=== PATIENT | female | born 1955 | race Caucasian/White ===

== ENCOUNTER 2018-04-04 11:52 | Inpatient (IN) | payer MEDICARE, BC, OTHER ==
[~2018-04-04] VITALS: Ht 165.1 cm; Wt 54.0 kg
--- NOTE | ~2018-04-04 | PLAN ---
[address] [address] REHAB UNIT PLAN OF CARE Name: ERICKA MORA Room: [facility] ADM IN M.R.#: [id number] Admission: 04/04/18 Attend Phys: Susan Camarena DO Discharge: Date of : 57 Report #: [id number] THIS REPORT FOR: //name// CC: FAM unknown Susan Camarena The patient was admitted to inpatient rehabilitation yesterday from [facility] secondary to end-stage renal disease. Previous level of function was modified independent to independent. Current level of function is min to moderate assist. Estimated length of stay is 16-18 days. REHABILITATION PROGNOSIS: Good. MEDICAL PROGNOSIS: Good. PT will see the patient 60-90 minutes a day for 5 days a week for ambulation, balance and coordination. OT will see the patient 60-90 minutes a day for 5 days a week for upper extremity strength, balance, coordination, bathing, dressing and toileting. Speech and language pathology will see the patient 30-90 minutes per day for 5 days a week. This is an overall plan of care and may change and we will be updated as needed. By: [id number] Camarena DO /bibiana
--- NOTE | ~2018-04-04 | D ---
[facility] [address] [place] [address] DISCHARGE SUMMARY Name: ERICKA MORA Room: [facility] ADM IN M.R.#: [id number] Admission: 04/04/18 Attend Phys: Susan Camarena DO Discharge: Date of : 57 Report #: [id number] THIS REPORT FOR: //name// CC: FAM unknown Susan Camarena DISCHARGE DIAGNOSIS: Debility with alterations in activities of daily living. DISCHARGE DISPOSITION: To home with home health, PT, OT and nursing. She will follow with her primary care physician within 2-4 weeks. Notifications for physician were given. She is on a renal regular diet with Ensure Clear with high routine. Labs were within normal limits. She was also maintained on hospital scheduled dialysis on Tuesdays, and Saturdays. She was able to make our minutes as well as her goals. She did quite well during her stay. She will follow up with her renal doctor per her renal dialysis schedule. Fall precautions maintained. Medications were reviewed, reconciled by myself and are available in the MAR. Prescriptions were given for oxycodone 5/325, one q. 6 hours as needed for pain, #60 with no refills. Otherwise no medications or prescriptions were started during the stay. DISCHARGE PHYSICAL EXAMINATION: GENERAL: Alert, oriented, no apparent distress. VITAL SIGNS: Reviewed and are stable. HEENT: Head atraumatic, normocephalic. Pupils equal, round, reactive. ABDOMEN: Soft, nontender, nondistended. NEUROLOGIC: Cranial nerves 2-12 are grossly intact with no focal neuro deficits. By: [id number] Camarena DO /nt
[2018-04-04] MEDS ORDERED: SSD CREAM 1% 5050 GM TOP (12:45)
[2018-04-04] MEDS ORDERED: MICONAZOLE NITR45 G3 TOP (12:47)
[2018-04-04] MEDS ORDERED: PERCOCET PO (12:48)
[2018-04-04] MEDS ORDERED: TRIAD TOP (12:50)
[2018-04-04] MEDS ORDERED: B COMPLEX WITH1 EACH PO (12:54)
[2018-04-04] MEDS ORDERED: TYLENOL EXTRA500 MG PO (12:55)
[2018-04-04] MEDS ORDERED: ONDANSETRON HCL4 M2 PO (12:56)
[2018-04-04] MEDS ORDERED: PROTONIX40 M1 PO (12:57)
[2018-04-04] MEDS ORDERED: PROBIOTIC1 EAC1 PO (12:58)
[2018-04-04] MEDS ORDERED: SYNTHROID50 MCG PO (12:58)
[2018-04-04] MEDS ORDERED: REGLAN 10 MG TA10 MG PO (12:59)
[2018-04-04] MEDS ORDERED: MIDODRINE HCL 55 M1 PO (13:00)
[2018-04-04] MEDS ORDERED: CALCITRIOL0.25 MCG PO (13:01)
[2018-04-04] MEDS ORDERED: CELEXA20 MG PO (13:02)
[2018-04-04] MEDS ORDERED: B-121000 MC2 PO (13:03)
[2018-04-04] MEDS ORDERED: ARANESP 6060 MCG/0.3 INJECTION (13:04)
[2018-04-04] MEDS ORDERED: COLESTID1 GM PO (13:08)
--- NOTE | 2018-04-04 17:46 | NUR ---
PT ARRIVED TO ROOM 324 PER W/C WITH SECURITY PUSHING PT AND W/C DATA CENTER PROJECT MANAGER FOLLOWING WITH PT'S W/C. PT ARRIVED WITH CUT ON LT HAND AND REPORTED SHE HAD FALLEN OUT OF W/C BEFORE ENTERING THE BUILDING. PT IS ALERT AND ORIENTATED AND PLESANT WITH ADMISSION DONE. LT HAND CLEANSED WITH WOUND CLEANSER AND BANDAGE APPLIED TO MIDDLE FINGER. PT DENIES PAIN. PT HAS AV SHUNT TO LT UPPER ARM WITH GOOD BRUT FELT. PT HAS REDDENED BUTTOX, CLEANSES AND BARRIER CREAM APPLIED. PT STATES SHE DOES NOT VOID AND HAS POOR CONTROL OF HER BOWELS.PT IS ORIENTATED TO ROOM AND CONTROLS,WITH FALL PREVENTION DISCUSSED.
[2018-04-04 20:00] VITALS: BP 106/60
[2018-04-05 04:51] LABS: HEMATOCRIT 22.9 % (37.0-47.0); HEMOGLOBIN 7.4 gm/dL (12.0-15.0); MCH 30.7 pg (26.0-34.0); MCHC 32.5 g/dL (28.0-37.0); MCV 94.5 fL (80.0-100.0); MPV 7.4 fl. (7.2-11.1); RBC 2.42 mil/uL (4.20-5.00); RDW-CV 16.7 % (10.5-14.5); WBC 8.7 thou/uL (4.0-11.0)
[2018-04-05 05:15] LABS: CALCIUM 7.9 mg/dL (8.5-10.1); CREATININE 2.3 mg/dL (0.6-1.3); POTASSIUM 3.9 mmol/L (3.5-5.1)
--- NOTE | 2018-04-05 05:52 | NUR ---
ASSUMED CARES AT 1920. DR MISTRY INFORMED OF PT'S FALL FROM EARLIER IN DAY. PT ALERT AND ORIENTED. PLEASANT. ALREADY IN BED. DENIED ANY PAIN. TOOK PILLS WHOLE WITHOUT ISSUES. AV SHUNT TO LUE WITH PALPABLE THRILL AND GOOD BRUIT. BARRIER CREAM APPLIED TO REDNESS TO COCCYX/BUTTOCKS. BANDAID INTACT TO LEFT FINGER SKIN TEAR. SOME STOOL INCONTINENCE. INITIALLY DURING THE NIGHT WERE SOFT STOOLS BUT THEN WAS SOFT/LIQUIDY GREEN WITH MUCOUS. HELLS OFFLOADED ONTO PILLOWS. TURNED ONTO SIDES THROUGHOUT THE NIGHT. SLEPT SOME OFF AND ON. CALL LIGHT IN REACH AND BED ALARM ON.
[2018-04-05 07:53] VITALS: BP 119/65
--- NOTE | 2018-04-05 13:57 | NUR ---
Nutrition: Pt has h/o lap band/removal, gastric bypass. She is currently on Renal diet. She is very knowledgable about her dietary need. She is admitted with debility 2/2 ESRD. Ca 7.9, cr 2.3, Hgb 7.4. Pt refused Jaiden, Nepro supplements. She does like yogurt - RD will order. Has a tough time eating meats, dislikes noodles. RD provided pt with menu and ordering explanation. Mild risk. Will follow weekly.
--- NOTE | 2018-04-05 18:19 | NUR ---
PT HAS PARTICIPATED WITH THERAPY TODAY AND HAD DIALYSIS THIS AFTERNOON AND TOLERATED WELL. PT IS ALERT AND ORIENTATED AND CALLS FOR ASSIST WITH TRANSFERRS. PT DOES WELL AFTER ASSISTED TO STANDING WITH GAITBELT. PT TRANSFERRS TO TOILET AND HAS HAD LARGE FORMED BM TODAY WITH ASSIST OF 2 FOR SAFETY. PT SELDOM VOIDS. BARRIER CREAM APPLIED TO COCCYX AND FUNGAL CREAM TO GROINS WITH GOOD EFFECT. PT HAS BEEN TO DINNINGROOM FOR LUNCH. DIALYSIS CATHETER INTACT WITH NO BLEEDING NOTED. PT VISITS WITH FAMILY.
[2018-04-05 19:58] VITALS: BP 98/50
[2018-04-05 23:07] LABS: HEPATITIS B SURFACE AG Negative (Negative)
--- NOTE | 2018-04-06 05:00 | NUR ---
ASSUMED CARES AT 1920. ALERT AND ORIENTED. PLEASANT. TAKING PILLS BETTER WHEN GIVEN WITH JUICE. DENIED ANY PAIN. HAD LIQUID STOOL INCONTINENCE. RN DID ALL CARES. BARRIER CREAM APPLIED TO REDNESS TO BUTTOCKS. PT TURNED THROUGHOUT THE NIGHT. SLEPT SOME OFF AND ON. CALL LIGHT IN REACH AND BED ALARM ON.
[2018-04-06 07:49] VITALS: BP 133/68
--- NOTE | 2018-04-06 11:31 | CON ---
[address] [address] CONSULTATION Name: ABBYERICKA Room: [address] IN M.R.#: [id number] Admission: 04/04/18 Attend Phys: Susan Camarena DO Discharge: Date of : 57 Report #: [id number] THIS REPORT FOR: //name// CC: FAM unknown Susan Camarena DATE OF SERVICE: 04/05/2018 REQUESTING PHYSICIAN: Dr. Camarena. REASON FOR CONSULTATION: Assist in providing dialysis. HISTORY OF PRESENT ILLNESS: The patient is a very pleasant 62-year-old female with medical history significant for end-stage renal disease, deconditioning, history of some chronic wounds. She also has ____ history of GERD and presents here in rehab for rehabilitation. His normal dialysis days here will be Wednesday, and Wednesday because of rehabilitation. FAMILY HISTORY: Noncontributory. SOCIAL HISTORY: No current tobacco or alcohol abuse. She never smoked. MEDICATIONS: Reviewed. REVIEW OF SYSTEMS: No chest pain, no shortness of breath. No nausea, no vomiting. She complains she is being weak and she has led to work here from ____ her rehab. PHYSICAL EXAMINATION: GENERAL: Awake, alert, oriented. VITAL SIGNS: Reviewed. HEENT: Pupils are round and reactive to light. NECK: Supple. LUNGS: Clear. CARDIOVASCULAR: Regular rate. ABDOMEN: Soft. LOWER EXTREMITIES: No edema. ASSESSMENT: A 62-year-old female with end-stage renal disease and deconditioning, admitted for rehabilitation. PLAN: Dialyze her on Wednesday, , Wednesday schedule while she is here. <ELECTRONICALLY SIGNED> By: Chuck Carey MD 04/06/18 1131 [id number] Carey MD /[facility]
--- NOTE | 2018-04-06 16:00 | NUR ---
SW completed initial assessment, introduced self, and SW role. Pt alert, oriented, pleasant. Pt lives at home with and nephew Ayden. [phone]. pt has RW, wc, stool riser and Bath bench. Pt has been on dialysis for 4 years at [facility] in [place]. SW and marion Trujillo met with pt to review team conference summary and plan for team to reteam during team conference next Wednesday. Pt in agreement with plan. SW to follow to discuss with pt nephew at pt request. SW to continue to follow to assist with safe dc planning.
--- NOTE | 2018-04-06 19:21 | NUR ---
AM ASSESSMENT AND VITAL SIGNS COMPLETED DOCUMENTED. PT HAS BEEN PLEASANT AND COOPERATIVE, WORKED WITH PT, OT AND ST. PRN PERCOCET GIVEN FOR C/O BACK PAIN THIS EVENING. FALL PRECAUTIONS AND HOURLY ROUNDING CONTINUE.
[2018-04-06 20:11] VITALS: BP 95/51
--- NOTE | 2018-04-07 05:23 | NUR ---
ASSUMED CARES AT 1920. ALREADY IN BED. ALERT AND ORIENTED. PLEASANT AND COOPERATIVE. TOOK PILLS WHOLE WITH JUICE. DENIED ANY NEED FOR FURTHER PAIN MEDS. HAD STOOL INCONTINENCE. NURSING DID ALL CARES. BARRIER CREAM APPLIED TO COCCYX. PT TURNED DURING THE NIGHT. SLEPT SOME. NO ISSUES OVERNIGHT. CALL LIGHT IN REACH AND BED ALARM ON.
[2018-04-07 08:00] VITALS: BP 104/61
[2018-04-07 09:33] VITALS: BP 104/61
--- NOTE | 2018-04-07 18:51 | NUR ---
AM ASSESSMENT AND VITAL SIGNS COMPLETED DOCUMENTED. PT COMPLETED ALL THERAPY SESSIONS SCHEDULED. PT HAS BEEN IN DIALYSIS SINCE 1500. FALL PRECAUTIONS AND HOURLY ROUNDING CONTINUE.
[2018-04-07 20:04] VITALS: BP 103/59
--- NOTE | 2018-04-08 05:10 | NUR ---
ASSUMED PT CARE AT 1930. PT RETURNED FROM DIALYSIS AT SHIFT CHANGE. VS WNL. PT ALERT AND ORIENTED X4, POLITE AND COOPERATIVE WITH CARES. TAKES PILLS WHOLE WITH JUICE. NO PAIN MEDS GIVEN. BARRIER CREAM TO COCCYX. PT TURNED Q2 OVERNIGHT. PT HAS VARIOUS BRUISES ON EXTREMITIES. DIALYSIS SHUNT TO LEFT ARM WITH BRUIT AND THRILL. DRESSING C/D/I. NO S/S PAIN OR DISTRESS. USES CALL LIGHT APPROPRIATELY. CALL LIGHT AND FREQUENTLY USED ITEMS WITHIN REACH. HOURLY ROUNDING IN PROGRESS, WILL CONTINUE TO MONITOR.
[2018-04-08 08:06] VITALS: BP 133/71
--- NOTE | 2018-04-08 18:02 | NUR ---
ASSUMMED CARE OF PT AT 0730, PT ALERT AND ORIENTED, TRANSFERS WITH MOD ASSIST OF 1, GB, PROPELS WHEELCHAIR TO DININGROOM, PT TAKING FOOD AND FLUIDS WELL, BM X 2 THIS SHIFT, SMALL INCONTINENT IN BED AND MODERATE ON TOILET, PT DIALYSIS ACCESS INTACT, GD BRUIT/THRILL, NO VOID THIS SHIFT, DENIES PAIN, PARTICIPATED IN ALL THERAPIES, HOURLY ROUNDING COMPLETED, ASSESSMENT COMPLETE, WILL CONTINUE TO MONITOR.
[2018-04-08 20:04] VITALS: BP 97/58
[2018-04-09 05:08] LABS: ABSOLUTE EOSINOPHILS 0.2 thou/uL (0.0-0.7); ABSOLUTE LYMPHOCYTES 2.4 thou/uL (0.8-5.3); ABSOLUTE MONOCYTES 0.4 thou/uL (0.0-1.2); ABSOLUTE NEUTROPHILS 2.8 thou/uL (1.6-8.1); BASOPHILS 0.5 %; EOSINOPHILS 2.7 %; HEMATOCRIT 23.5 % (37.0-47.0); HEMOGLOBIN 7.9 gm/dL (12.0-15.0); LYMPHOCYTES 42.2 %; MCHC 33.9 g/dL (28.0-37.0); MCV 94.6 fL (80.0-100.0); MONOCYTES 6.8 %; MPV 7.2 fl. (7.2-11.1); NUCLEATED RBCS 0 /100WBC; PLATELET COUNT* 154 thou/uL (150-400); POLYS 47.8 %; RBC 2.48 mil/uL (4.20-5.00); RDW-CV 16.5 % (10.5-14.5); WBC 5.8 thou/uL (4.0-11.0)
--- NOTE | 2018-04-09 05:22 | NUR ---
ASSUMED PT CARE AT 1930. PT ALERT AND ORIENTED X4, POLITE AND COOPERATIVE WITH CARES. TAKES PILLS WHOLE WITH WATER WITHOUT DIFFICULTY. DIALYSIS SHUNT TO LEFT ARM INTACT WITH GOOD BRUIT AND THRILL. NO VOID THIS SHIFT. PT DENIES PAIN. NO STOOL THIS SHIFT. HOURLY ROUNDING IN PROGRESS, WILL CONTINUE TO MONITOR.
[2018-04-09 05:35] LABS: ALBUMIN 1.4 g/dL (3.4-5.0); ALKALINE PHOSPHATASE 70 U/L (46-116); ANION GAP 2 mmol/L (7-16); BUN 9 mg/dL (7-18); CALCIUM 7.7 mg/dL (8.5-10.1); CHLORIDE 102 mmol/L (98-107); CO2 33 mmol/L (21-32); CREATININE 2.7 mg/dL (0.6-1.3); DIRECT BILIRUBIN 0.1 mg/dL (<0.1-0.3); GLUCOSE 65 mg/dL (70-99); PHOSPHORUS* 2.8 mg/dL (2.5-4.9); POTASSIUM 4.1 mmol/L (3.5-5.1); SGOT 11 U/L (15-37); SODIUM 137 mmol/L (136-145); TOTAL BILIRUBIN 0.4 mg/dL (<0.1-1.0); TOTAL PROTEIN 4.8 g/dL (6.4-8.2)
[2018-04-09 20:00] VITALS: BP 104/58
--- NOTE | 2018-04-10 05:16 | NUR ---
ASSUMED PT CARE AT 1930. PT ALERT AND ORIENTED X4, POLITE AND COOPERATIVE WITH CARES. PT ALREADY IN BED AT SHIFT CHANGE HAVING RETURNED FROM DIALYSIS. TAKES PILLS WHOLE WITH JUICE WITHOUT DIFFICULTY. DIALYSIS SHUNT TO LEFT ARM INTACT WITH GOOD BRUIT AND THRILL. INCONTINENT OF STOOL SEVERAL TIMES THIS SHIFT. STAFF PERFORMED ALL PERICARES, BARRIER CREAM APPLIED. REDNESS TO BUTTOCKS IMPROVED. NO URINE OUTPUT. TURNED Q2 OVERNIGHT. CALL LIGHT AND FREQUENTLY USED ITEMS WITHIN REACH. HOURLY ROUNDING IN PROGRESS, WILL CONTINUE TO MONITOR.
[2018-04-10 07:50] VITALS: BP 119/56
[2018-04-10 13:50] LABS: SGPT < 6 U/L (30-65)
--- NOTE | 2018-04-10 18:14 | NUR ---
AM ASSESSMENT AND VITAL SIGNS COMPLETED DOCUMENTED. PT HAS BEEN ANURIC TODAY, INCONTINENT OF BOWEL X1. PT REQUIRES MODERATE ASSIST WITH TRANSFERS AND TOILETING BUT IS ABLE TO DO HER ADL'S FROM A CHAIR AND FEEDS HERSELF WITHOUT DIFFICULTY. FALL PRECAUTIONS AND HOURLY ROUNDING CONTINUE.
[2018-04-10 20:00] VITALS: BP 91/55
--- NOTE | 2018-04-11 04:57 | NUR ---
ASSUMED CARE AT 1920. ALERT AND ORIENTED. PLEASANT. ALREADY IN BED. TAKES PILLS WHOLE. DENIED ANY NEED FOR PAIN MEDS. REDNESS TO COCCYX IMPROVING. BARRIER CREAM APPLIED. DRESSING TO LEFT FOREARM CHANGED. PICTURES TAKEN. DID HAVE URINARY INCONTINENCE X 1. NURSING ASSISTED WITH CARES. TURNED EVERY 2 HOURS. HAD MUCH DIFFICULTY TRYING TO SLEEP. SLEPT VERY LITTLE. CALL LIGHT IN REACH AND BED ALARM ON.
[2018-04-11 07:43] VITALS: BP 126/62
--- NOTE | 2018-04-11 15:55 | NUR ---
ASSUMMED CARE OF PT AT 0730, PT ALERT AND ORIENTED, TRANSFERS WITH ASSIST OF 1, GB, NEEDS LIFTING ASSIST. DIALYSIS SHUNT IN LEFT ARM, DENIES PAIN, NO URINATION THIS SHIFT, NEW SKIN TEAR BELOW LEFT ELBOW, CLEANSED AND MEPILEX APPLIED, NEEDS ENCOURAGEMENT TO EAT, TOLERATED TAKING PILLS WITH NO CHOKING/EMESIS TODAY. PARTICIPATED IN ALL THERAPIES, HOURLY ROUNDING COMPLETED, ASSESSMENT COMPLETE WILL CONTINUE TO MONITOR.
[2018-04-11 20:00] VITALS: BP 112/71
--- NOTE | 2018-04-12 05:12 | NUR ---
ASSUMED PT CARE AT 1930. PT ALERT AND ORIENTED X4, POLITE AND COOPERATIVE WITH CARES. PT ALREADY IN BED AT SHIFT CHANGE. DENIES PAIN. TAKES PILLS WHOLE WITH JUICE WITHOUT DIFFICULTY. DIALYSIS SHUNT TO LEFT ARM INTACT WITH GOOD BRUIT AND THRILL. INCONTINENT OF STOOL, STAFF PERFORMED PERICARES. BARRIER CREAM APPLIED. REDNESS TO BUTTOCKS IMPROVED. NO URINE OUTPUT THIS SHIFT. TURNED Q2 OVERNIGHT. CALL LIGHT AND FREQUENTLY USED ITEMS WITHIN REACH. HOURLY ROUNDING IN PROGRESS, WILL CONTINUE TO MONITOR.
[2018-04-12 08:27] VITALS: BP 96/63
--- NOTE | 2018-04-12 14:16 | NUR ---
SW called and left a message with pt nephew in preparation for team conference tomorrow and requested call back with any questions or comments. SW to continue to follow to assist with safe dc planning.
--- NOTE | 2018-04-12 18:34 | NUR ---
ASSUMMED CARE OF PT AT 0730, PT ALERT AND ORIENTED, TRANSFERS WITH MOD ASSIST OF 1 AND GB, NEEDS LIFTING ASSIST, NO URINE OUTPUT THIS SHIFT, PT LEFT FOR HEMODIALYSIS AT 1500, BM X 1 THIS SHIFT, RECIEVED SKIN TEAR TO FINGER AND ARM THIS SHIFT, MEPILEX AND BANDAIDE APPLIED, DENIES PAIN, PARTICIPATED IN ALL THERAPIES, PROPELS WHEELCHAIR INDEPENDENTLY, TO DININGROOM FOR LUNCH, HOURLY ROUNDING COMPLETED, ASSESSMENT COMPLETE WILL CONTINUE TO MONITOR.
[2018-04-12 20:00] VITALS: BP 116/69
--- NOTE | 2018-04-13 05:25 | NUR ---
ASSUMED PT CARE AT 1930. PT ALERT AND ORIENTED X4, POLITE AND COOPERATIVE WITH CARES. PT RECENTLY RETURNED FROM DIALYSIS, RESTING IN BED AT SHIFT CHANGE. DENIES PAIN. TAKES PILLS WHOLE WITH JUICE WITHOUT DIFFICULTY. DIALYSIS SHUNT TO LEFT ARM INTACT WITH GOOD BRUIT AND THRILL. MEPILEX X3 TO VARIOUS SKIN TEARS AND BANDAID TO LEFT HAND. INCONTINENT OF STOOL, STAFF PERFORMED PERICARES. BARRIER CREAM APPLIED. REDNESS TO BUTTOCKS IMPROVED. NO URINE OUTPUT THIS SHIFT. TURNED Q2 OVERNIGHT. CALL LIGHT AND FREQUENTLY USED ITEMS WITHIN REACH. HOURLY ROUNDING IN PROGRESS, WILL CONTINUE TO MONITOR.
[2018-04-13 08:17] VITALS: BP 112/69
--- NOTE | 2018-04-13 16:24 | NUR ---
RAMÍREZ and Dr Camarena met with pt to review team conference summary and plan for pt to remain on rehab unit one more week with team to meet next Wednesday to reassess pt length of stay during team conference. Pt okay with plan and expressed that she hopes to be able to dc before Saroj. SW to continue to follow to assist with safe dc planning.
--- NOTE | 2018-04-13 17:45 | NUR ---
ASSUMED CARE AT 0730 PATIENT ALERT/ORIENTED, NO COMPLAINTS OF PAIN THIS SHIFT UP WITH ASSIST OF ONE WITH GAITBELT/STAND PIVOT TO W/C, PATIENT PROPELS SELF AROUND UNIT IN W/C. PARTICIPATED IN ALL THERAPIES TODAY, TO DINING ROOM FOR MEALS, BED/CHAIR ALARMS IN PLACE, CALL LIGHT IN REACH, HOURLY ROUNDING COMPLETED.
[2018-04-13 20:00] VITALS: BP 109/62
--- NOTE | 2018-04-14 01:30 | NUR ---
ASSUMED CARE @ 1939-.SITS IN W/C IN ROOM & PROPELS W/C IND.LEFT UPPER ARM SHUNT/FISTULA HAS GOOD BRUIT & GOOD THRILL @ 1939.PASSING GAS.BED ALARM PUT ON @ 2029.REFUSED HS MEDS X2 & TOPICAL MED X1.PULL UPS OFF @ HS. ANTI FUNGAL CREAM APPLIED TO PINK COCCYX @ 0000-04/14-.ON HOURLY ROUNDS. HVAC INSTALLER DOING ODD HOUR ROUNDS.SEE POSITION CHANGE CHARTING Q 2 HOURS-EVEN HOURS.
[2018-04-14 04:11] LABS: HEMATOCRIT 23.3 % (37.0-47.0); HEMOGLOBIN 7.7 gm/dL (12.0-15.0); MCH 30.7 pg (26.0-34.0); MCHC 32.9 g/dL (28.0-37.0); MCV 93.3 fL (80.0-100.0); MPV 7.5 fl. (7.2-11.1); RBC 2.49 mil/uL (4.20-5.00); RDW-CV 16.1 % (10.5-14.5); WBC 5.5 thou/uL (4.0-11.0)
[2018-04-14 04:43] LABS: CALCIUM 7.8 mg/dL (8.5-10.1); MAGNESIUM 1.9 mg/dL (1.8-2.4); POTASSIUM 3.9 mmol/L (3.5-5.1)
--- NOTE | 2018-04-14 05:08 | NUR ---
SLEEPING SINCE 2199 & SLEPT GOOD ALL NIGHT.AWAKENED ONLY TO TURN & GOES BACK TO SLEEP.BRP PER W/C X1 BEFORE HS BUT ONLY PASSED GAS.NO BM.TOOK ALL APPLE JUICE HS SNACK.FOR DIALYSIS TODAY-SATURDAY 04/14.
[2018-04-14 07:00] VITALS: BP 111/71
[2018-04-14 08:00] VITALS: BP 111/71
--- NOTE | 2018-04-14 17:43 | NUR ---
ASSUMED CARE AT 0730 PATIENT ALERT/ORIENTED, NO COMPLAINTS OF PAIN THIS SHIFT, UP WITH MOD ASSIST TO STANDING POSITION, PROPELS SELF IN W/C ON UNIT. PARTICIPATED IN ALL THERAPIES TODAY, TO DINING ROOM FOR MEALS, HOURLY ROUNDING COMPLETED, BED/CHAIR ALARMS IN PLACE, CALL LIGHT IN REACH. DIALYSIS THIS AFTERNOON.
[2018-04-14 20:00] VITALS: BP 98/60
--- NOTE | 2018-04-15 02:49 | NUR ---
ASSUMED CARE @ 1949-04/14-.AWAKE IN BED WATCHING BALL GAME W/ HOB UP. BED ALARM ON ALREADY @ 1949.SHUNT/FISTULA LEFT UPPER W/ GOOD BRUIT & GOOD THRILL.HEELS OFF BED @ 1949.REFUSED ORAL MEDS X2 & TOPICAL OINT. @ HS.PULL UPS OFF @ 2154.SEE POSITION CHANGE CHARTING BY PICKING TABLE WORKER Q 2 HOURS-EVEN HOURS.ON HOURLY ROUNDS.PICKING TABLE WORKER DOING ODD HOUR ROUNDS.AWAKENED ONLY TO TURN.
--- NOTE | 2018-04-15 05:21 | NUR ---
SLEEPING SINCE 2100 & SLEPT GOOD ALL NIGHT.[employer].INC BM @ 0200.MOISTURE BARRIER CREAM APPLIED AFTER ALVARO CARE @ 0200 & PRN.TOOK ALL APPLE JUICE HS SNACK.
[2018-04-15 07:00] VITALS: BP 120/71
--- NOTE | 2018-04-15 13:54 | NUR ---
ASSUMED CARE AT 0730. ALERT ORIENTED PLEASANT COOPERATIVE. HX OF WEAKNESS RENAL FAILURE. SITTING IN BED EATING BREAKFAST. APPETITE GOOD FEEDS SELF. TAKES MEDS WITHOUT DIFFICULTY. PARTICIPATING IN THERAPIES. DENIES PAIN OR REQUESTS. USES CALL LIGHT APPROPRIATELY FOR ASSISTANCE. L ARM BRUIT PRESENT AND PALPABLE. WEARS PULLUPS FOR INCONTINENCE OF BM AT TIMES.
[2018-04-15 20:15] VITALS: BP 114/59
--- NOTE | 2018-04-15 20:30 | NUR ---
SITTING UP IN BED WATCHING TV. IN GOOD SPIRITS. STATES BACK PAIN HAS DECREASED FROM A 7 WHEN PEROCET WAS GIVEN AT THE END OF DAY SHIFT TO A 5. OFFER OF TYLENOL DECLINED. TOOK MEDICATIONS WHOLE WITH APPLE JUICE.
--- NOTE | 2018-04-16 05:12 | NUR ---
RESTED QUIETLY. ASSISTED WITH REPOSITIONING. PATIENT TO HAVE DIALYSIS AT 1330. HOURLY ROUNDING IN PROGRESS.
[2018-04-16 08:00] VITALS: BP 94/64
--- NOTE | 2018-04-16 18:01 | NUR ---
ASSUMED CARE AT 0730 PATIENT ALERT/ORIENTED, NO COMPLAINTS OF PAIN THIS SHIFT, UP WITH ASSIST OF ONE AND GAIT BELT TO W/C, PATIENT PROPELS SELF IN HALLWAY. PARTICIPATED IN ALL THERAPIES TODAY, TO DINING ROOM FOR MEALS. HOURLY ROUNDING COMPLETED, BED/CHAIR ALARMS IN PLACE, CALL LIGHT IN REACH. TO DIALYSIS AT 1400.
[2018-04-16 20:17] VITALS: BP 80/50
--- NOTE | 2018-04-16 20:25 | NUR ---
AWAKENED FOR REASSESSMENT AND MEDICATION PASS. ALVARO CARE PROVIDED. BARRIER CREAM APPLIED TO REDDENED BUTTOCKS. DENIES DISCOMFORT. TOOK HS MEDICATION WITH APPLE JUICE. ASSISTED WITH REPOSITIONING.
--- NOTE | 2018-04-17 05:49 | NUR ---
SLEPT SOUNDLY. NO COMPLAINTS VOICED. HOURLY ROUNDING IN PROGRESS.
[2018-04-17 08:42] VITALS: BP 107/63
--- NOTE | 2018-04-17 18:30 | NUR ---
ASSUMED CARE AT 0730 PATIENT ALERT/ORIENTED, NO COMPLAINTS OF PAIN THIS SHIFT, UP WITH ASSIST OF ONE/GAIT BELT TO W/C, PATIENT SELF PROPELS AROUND UNIT, VISITED WITH FAMILY/FRIENDS TODAY, TO DINING ROOM FOR MEALS, HOURLY ROUNDING COMPLETED, BED/CHAIR ALARMS IN PLACE CALL LIGHT IN REACH
[2018-04-17 19:13] VITALS: BP 86/51
--- NOTE | 2018-04-17 19:15 | NUR ---
SITTING UP IN WHEELCHAIR. ASSISTED FROM WHEELCHAIR TO THE TOILET WITH MODERATE ASSIST OF ONE, CGA, GAITBELT, STAND, PIVOT, LIFTING ASSIST TO GET FROM SITTING TO STANDING. REQUIRES STEADYING ASSISTANCE AND ASSISTANCE WITH PANTS. ASSISTED WITH ALVARO CARE. INCONTINENT OF BOWEL BEFORE WAS ABLE TO SIT DOWN BUT BM WAS CONTAINED IN THE PULL UP. DENIES DISCOMFORT.
--- NOTE | 2018-04-18 05:47 | NUR ---
RESTED ON/OFF. ASSISTED WITH REPOSITIONING THROUGHOUT THE NIGHT. INCONTIENT OF BM THIS MORNING. ASSISTED WITH ALVARO CARE. HOURLY ROUNDING IN PROGRESS.
[2018-04-18 07:30] VITALS: BP 98/64
--- NOTE | 2018-04-18 16:27 | NUR ---
ASSUMED CARE AT 0730. ALERT ORIENTED PLEASANT COOPERATIVE. HX OF WEAKNESS RENAL FAILURE.. TRANSFERS WITH 1 ASSIST HAD SOME DIFFICULTY GETTING TO STAND POSITION FROM W/C TO GET ON TOILET HAD A MOD BM AFTER BREAKFAST. NEEDS SOME ASSIST WITH CLOTHING ADJUSTMENTS. ABLE TO DO HYGEINE. MEDICATED X 1 THIS A.M. FOR C/O BACK AND L LEG PAIN WITH PRN MED. SOME RELIEF STATED. USES CALL LIGHT FOR ASSISTANCE. PARTICIPATING IN THERAPIES THROUGHOUT THE DAY. DID REQUEST A SECOND PAIN MED THIS AFTERNOON FOR BACK PAIN. NEPHEW HERE VISITING LATER AFTERNOON.
[2018-04-18 20:00] VITALS: BP 99/59
--- NOTE | 2018-04-19 05:24 | NUR ---
ASSUMED PT CARE AT 1930. PT SITTING UP IN WHEELCHAIR WATCHING TELEVISION AT SHIFT CHANGE. HX OF WEAKNESS AND RENAL FAILURE. ALERT AND ORIENTED X4, POLITE AND COOPERATIVE WITH CARES. TRANSFERS WITH ASSIST OF ONE, STAND/PIVOT FROM WHEELCHAIR TO TOILET. STAFF ASSISTED WITH CLOTHING ADJUSTMENTS AND PERICARE. BARRIER CREAM APPLIED. PT WEARS OWN PULLUPS. VARIOUS BANDAGES ON MULTIPLE SKIN TEARS. PT TO HAVE DIALYSIS TODAY. SLEPT WELL OVERNIGHT, REFUSED SOME TURNS. USES CALL LIGHT APPROPRIATELY. NO PAIN MEDICATIONS THIS SHIFT. CALL LIGHT AND FREQUENTLY USED ITEMS WITHIN REACH. HOURLY ROUNDING IN PROGRESS, WILL CONTINUE TO MONITOR.
[2018-04-19 08:08] VITALS: BP 123/65
[2018-04-19 10:39] LABS: ABSOLUTE BASOPHILS 0.1 thou/uL (0.0-0.2); ABSOLUTE EOSINOPHILS 0.1 thou/uL (0.0-0.7); ABSOLUTE LYMPHOCYTES 1.6 thou/uL (0.8-5.3); ABSOLUTE MONOCYTES 0.3 thou/uL (0.0-1.2); ABSOLUTE NEUTROPHILS 3.4 thou/uL (1.6-8.1); HEMATOCRIT 36.1 % (37.0-47.0); HEMOGLOBIN 11.5 gm/dL (12.0-15.0); MCH 29.7 pg (26.0-34.0); MCHC 31.8 g/dL (28.0-37.0); MCV 93.3 fL (80.0-100.0); MONOCYTES 4.8 %; MPV 7.7 fl. (7.2-11.1); NUCLEATED RBCS 0 /100WBC; PLATELET COUNT* 188 thou/uL (150-400); POLYS 63.2 %; RBC 3.87 mil/uL (4.20-5.00); RDW-CV 15.9 % (10.5-14.5); WBC 5.4 thou/uL (4.0-11.0)
[2018-04-19 10:50] LABS: CALCIUM 8.6 mg/dL (8.5-10.1); CREATININE 3.6 mg/dL (0.6-1.3); POTASSIUM 4.5 mmol/L (3.5-5.1)
--- NOTE | 2018-04-19 11:45 | NUR ---
Nutrition: Follow up note. Per physician's progress note, he wants pt's diet liberalized since her labs ore ok, PO4 2.8. RD will order Regular diet for pt. RD provided Regular menu in pt's room. Will continue to follow weekly.
--- NOTE | 2018-04-19 15:04 | NUR ---
ASSUMED CARE AT 0730. ALERT ORIENTED PLEASANT COOPERATIVE. HX OF RENAL FAILURE AND WEAKNESS. TRANSFERS WITH 1 ASSIST G BELT WALKER HAS SOME DIFFICULTY GETTING TO STANDING POSITION FROM W/C DUE TO SACRAL DISCOMFORT WEAKNESS NEEDS SOME LIFTING ASSIST. DENIES NEED FOR PAIN MED THIS A.M. PROPELLS SELF IN W/C ON UNIT AND TO THERAPIES. FEEDS SELF TAKES MEDS WITHOUT DIFFICULTY. PARTICIPATING IN THERAPIES THROUGHOUT THE DAY. HAS AQUIRED A NEW BLOOD BLISTER LEFT HAND FROM BUMPING ON STOOL RISER PICS TAKEN AND BAND AID APPLIED. USES CALL LIGHT APPROPRIATELY FOR ASSIST. DR. RUIZ ROUNDED THIS A.M.
[2018-04-19 19:41] VITALS: BP 92/52
--- NOTE | 2018-04-20 01:42 | NUR ---
ASSUMED CARE @ 1934-04/19-.DIALYSIS DONE @ THIS TIME.ASSISTED DIALYSIS NURSE TO PUSH BACK BED TO ROOM.HOB UP.BED ALARM PUT ON @ 2009.WARMED DINNER. 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
--- NOTE | 2018-04-20 05:14 | NUR ---
ANURIC.SLEEPING SINCE 0.TOOK ALL APPLE JUICE HS SNACK.INC SMALL BM X1 & MOD BM X1.BOWEL ACCIDENT X1 ONLY.ALVARO CARE GIVEN 2X.BARRIER CREAM APPLIED TO PINK COCCYX PRN.AWAKENED ONLY TO TURN & GOES BACK TO SLEEP.
[2018-04-20 07:30] VITALS: BP 121/69
[2018-04-20 20:08] VITALS: BP 91/56
--- NOTE | 2018-04-21 01:19 | NUR ---
ASSUMED CARE @ .SITS IN W/C @ THIS TIME ON HER PHONE.LEFT UPPER ARM SHUNT HAS GOOD BRUIT BUT UNABLE TO PALPATE THRILL.WANTS ONE CUP ICE @ HS. HOB UP IN BED.BED ALARM PUT ON @ 2139.WANTS TV ON & BATHROOM LIGHTS ON ALL NIGHT.HEELS OFF BED @ 2139.TEMP @ 2007-99.0 ORAL.TEMP.RE-CHECKED @ - -98.5 ORAL.ON HOURLY ROUNDS.DIRECTOR LOSS PREVENTION DOING ODD HOUR ROUNDS.SEE POSITION CHANGE CHARTING Q 2 HOURS-EVEN HOURS BY DIRECTOR LOSS PREVENTION.
--- NOTE | 2018-04-21 05:27 | NUR ---
SLEPT LATE @ 0200-04/21-.BRP PER W/C X1-HAD SMALL BM.MOISTURE BARRIER CREAM APPLIED TO PINK COCCYX @ 2139.TOOK ALL 120 ML APPLE JUICE HS SNACK.ANURIC.AWAKENED ONLY TO TURN.LEGS SCALY.WILL ASK DR MISTRY TO ORDER EUCERIN CREAM.
[2018-04-21 08:06] VITALS: BP 127/72
--- NOTE | 2018-04-21 08:41 | NUR ---
SW met with pt to review team conference summary and plan to Reteam with dc on Friday 04/27 after team conference and after dialysis as schedule would change to MWF. Pt was not in agreement with plan and expressed that she would be able to sit to stand with higher surfaces and plans to have new cushion that is higher in her chair. Pt says she is confident in her transfers now. RAMÍREZ spoke with Dr Camarena who suggested a pass. RAMÍREZ met with pt later in the day and she said that she and Dr Camarena agreed for dc on Wednesday 04/25 after therapy and dialysis. SW to continue to follow to assist with safe dc planning.
--- NOTE | 2018-04-21 12:48 | NUR ---
SW followed up with pt today to discuss dc planning for Wednesday and team's recommendation for family training prior to dc. Pt nephew was here and pt said that he has already had some family training with PT and will get together with OT to decide on FT time as well. SW to continue to follow to assist with safe dc planning.
--- NOTE | 2018-04-21 17:13 | NUR ---
AM ASSESSMENT AND VITAL SIGNS COMPLETED DOCUMENTED. PT COMPLETED ALL THERAPY SESSIONS SCHEDULED AND IS CURRENTLY BEING DIALYZED. FALL PRECAUTIONS AND HOURLY ROUNDING CONTINUE.
[2018-04-21 20:11] VITALS: BP 102/52
--- NOTE | 2018-04-22 03:35 | NUR ---
ASSUMED PT CARE AT 1930. ASSESSMENT COMPLETED CHARTED. ABLE TO MAKE NEEDS KNOWN. PT SLEEPING ON AND OFF THROUGHOUT THE NIGHT. NO C/0 PAIN OR DISCOMFORT. FISTULA IS DRY AND INTACT, BRUIT AND THRILL PRESENT. WILL CONTINUE TO MONITOR.
[2018-04-22 08:22] VITALS: BP 158/71
--- NOTE | 2018-04-22 13:30 | NUR ---
SW received call from pt nephew who explained that [facility] in [place] would need updated referral information for pt due to pt being gone from the clinic for over 30 or even 60 days possibly. RAMÍREZ called and spoke with [facility] oncology social worker Hannah Valadez at ph [phone]. Hannah requested flow sheets, labs, H&P, radiology reports, etc and SW faxed to fax # [phone]. FT is in progress. SW to continue to follow to finalize safe dc plan for Wednesday. Pt to dc home with and HH services to follow and to confirm dialysis chair available.
[2018-04-22 19:00] VITALS: BP 108/62
--- NOTE | 2018-04-22 19:13 | NUR ---
ASSUMED CARE AT 0730 PATIENT ALERT/ORIENTED, NO COMPLAINTS OF PAIN THIS SHIFT, UP WITH ASSIST OF ONE AND WALKER/GAIT BELT. TO DINING ROOM FOR MEALS, BED/CHAIR ALARMS IN PLACE, CALL LIGHT IN REACH, PARTICIPATED IN ALL THERAPIES TODAY. TO BE DISCHARGE WEDNESDAY AM AFTER 6AM DIALYSIS
--- NOTE | 2018-04-23 01:25 | NUR ---
ASSUMED CARE @ 1936-04/22-WEDNESDAY.AWAKE IN BED.HOB UP.BED ALARM PUT ON @ 1936. REFUSED ALL HS ORAL MEDS X2 & ONE TOPICAL MED @ 2014.WANTS TO KEEP PULL UPS ON.ON HOURLY ROUNDS.INSIDE SALES ADVISOR DOING ODD HOUR ROUNDS.MOISTURE BARRIER CREAM APPLIED TO PINK COCCYX @ -SAT.AWAKENED ONLY TO TURN.SEE POSITION CHANGE CHARTING BY INSIDE SALES ADVISOR Q 2 HOURS-EVEN HOURS.
--- NOTE | 2018-04-23 05:18 | NUR ---
SLEPT LATE SINCE 0000-04/23-SAT.BUT SLEEPING GOOD ALL NIGHT.ALVARO CARE X1. MOISTURE BARRIER CREAM APPLIED TO PINK COCCYX 2X.ANURIC.TOOK ALL VANILLA ICE CREAM HS SNACK.FOR DISCHARGE WEDNESDAY 04/25-AFTER DIALYSIS W/C WILL BE GIVEN @ 0700.
[2018-04-23 07:00] VITALS: BP 131/77
--- NOTE | 2018-04-23 17:00 | NUR ---
ASSUMED CARE AT 0730. ALERT ORIENTED PLEASANT COOPERATIVE. HX OF WEAKNESS RENAL FAILURE. TRANSFERS WITH SBA G BELT WALKER FROM BED AMBULATED TO BR TO HAVE BM BUT HAD ACCIDENT ON PAD AND DRAW SHEET. PT. DRESSED SELF THIS A.M. UP IN W/C AND TO DR FOR MEALS. PROPELLS SELF IN W/C IN ROOM AND HALLS. USES CALL LIGHT APPROPRIATELY FOR ASSIST. DENIES PAIN OR CONCERNS. HOURLY ROUNDING COMPLETED. PT. WILL HAVE DIALYSIS AT 1830.
[2018-04-23 20:00] VITALS: BP 116/73
--- NOTE | 2018-04-23 22:45 | NUR ---
ASSUMED CARE AT 193. PATIENT RESTING IN BED. TO DIALYSIS AT 1940. GIVEN HS MEDS PRIOR TO DIALYSIS PER REQUEST, SEE JUL. DIALYSIS NURSE ADMINISTERED EPO PER NEW ORDERS. STILL IN DIALYSIS AT THIS TIME. HOURLY ROUNDS DONE IN DIALYSIS. NO C/O PAIN. OBSERVED SLEEPING WHEN THIS NURSE WENT TO DIALYSIS TO OBSERVE MEDS GIVEN.
--- NOTE | 2018-04-24 06:23 | NUR ---
RETURNED FROM DIALYSIS AFTER MIDNIGHT. DIALYSIS NURSE STATES HE PULLED OFF A LITER FROM PATIENT. GAVE EPO PER NEW ORDER. ENDING VS [id number] AND TOLERATED IT WELL. SLEPT MUCH OF THE NIGHT. TURNED Q2H. NO URINE OUTPUT OR STOOLS THIS SHIFT. HOURLY ROUNDS CONTINUE. BED ALARM ON. CALL LITE IN REACH.
[2018-04-24 09:18] VITALS: BP 129/75
--- NOTE | 2018-04-24 16:25 | NUR ---
ASSUMED CARE AT 0730. ALERT ORIENTED PLEASANT COOPERATIVE. HX OF WEAKNESS RENAL FAILURE. TRANSFERS WITH SBA G BELT FROM BED TO W/C. PROPELLS SELF IN W/C IN ROOM AND IN HALLS TO DR FOR MEALS. DENIES PAIN OR CONCERNS. PARTICIPATING IN THERAPIES THROUGHOUT THE DAY. TAKES MEDS WITHOUT DIFFICULTY FEEDS SELF. USES CALL LIGHT APPROPRIATELY FOR ASSIST. PICTURES TAKEN OF SKIN TEARS L ARM RT. ARM. FRESH DRESSINGS APPLIED. L ARM AV SHUNT PALPABLE. WATCHING FOOTBALL GAMES IN ROOM. EXCITED TO BE GOING HOME WEDNESDAY.
--- NOTE | 2018-04-24 16:56 | NUR ---
HOURLY ROUNDING COMPLETED THIS SHIFT.
[2018-04-24 20:00] VITALS: BP 106/59
--- NOTE | 2018-04-24 23:02 | NUR ---
ASSUMED CARE AT 193. PATIENT RESTING IN BED. ASSISTED WITH TURNS Q2H. POSITIONED WITH PILLOWS PER REQUEST. ON HEMODIALYSIS, DOES NOT VOID. TAKES PILLS WHOLE WITH WATER. DENIES PAIN. PICTURE OF SACRUM TAKEN AT SHIFT CHANGE. SACRAL AREA PINK, NO OPEN AREA, SKIN CARE DONE, MOISTURE BARRIER APPLIED. VERY COMPLIANT WITH STAYING OFF HER BACK. DRESSINGS TO SKIN TEARS C/D/I. LIKES ICE CHIPS. HS SNACK OF ORANGE SHERBET. HOURLY ROUNDS CONTINUE. BED ALARM ON. CALL LITE IN REACH.
[2018-04-25] MEDS ORDERED: CALCIUM 600 +1 EAC1 PO (02:58)
--- NOTE | 2018-04-25 06:16 | NUR ---
SLEPT MOST OF THE NIGHT. HAD LARGE SOFT LIGHT BROWN STOOL. SHE STARTED HER BM BEFORE SHE COULD TRANSFER OUT OF BED. WENT PER W/C TO TOILET AND FINISHED HER BM. SHE DID SOME OF THE HYGIENE, BUT NURSING FINISHED IT. BED CHANGED, GOWN CHANGED. MOISTURE BARRIER APPLIED LIBERALLY. WEARING PULLUP AFTER BM. SHE SAYS THIS HAPPENS NEARLY EVERY MORNING ABOUT THIS TIME. READY FOR DIALYSIS. NO C/O PAIN. HOURLY ROUNDS CONTINUE. BED ALARM ON. CALL LITE IN REACH.
[2018-04-25 10:33] VITALS: BP 103/61
[2018-04-25 10:47] VITALS: BP 103/61
[2018-04-25 11:21] VITALS: BP 103/61
--- NOTE | 2018-04-25 11:37 | NUR ---
Pt to dc home with family today. services to follow; SW faxed referral and orders and med list to pt preference on [facility] [phone] fax [phone]. RAMÍREZ received call from nurse at [facility] in [place] approving, finalizing services to resume and chair time MWF 5:45 to 9:00 am; pt to arrive at 5:30 am and to be picked up at 9:30 am.
--- NOTE | 2018-04-25 12:10 | NUR ---
PT ALREADY IN DIALYSIS AT THE BEGINNING OF THE SHIFT. PT RETURNED TO HER ROOM AT 1030 IN STABLE CONDITION. DISCHARGE ANTICIPATED LATER TODAY.
== END 2018-04-25 15:15 | disposition home health service (06) | DRG 684 ==
LOC: M.REH 11:52
PROVIDERS: Family Medicine; Internal Medicine; Internal Medicine Nephrology; ADMIT Physical Medicine & Rehabilitation
PROC: 5A1D70Z Performance of Urinary Filtration, Intermittent, Less than 6 Hours Per Day (ICD-10-PCS; principal; 2018-04-05)
PROC: 5A1D70Z Performance of Urinary Filtration, Intermittent, Less than 6 Hours Per Day (ICD-10-PCS; 2018-04-09)
PROC: 5A1D70Z Performance of Urinary Filtration, Intermittent, Less than 6 Hours Per Day (ICD-10-PCS; 2018-04-14)
PROC: 5A1D70Z Performance of Urinary Filtration, Intermittent, Less than 6 Hours Per Day (ICD-10-PCS; 2018-04-16)
PROC: 5A1D70Z Performance of Urinary Filtration, Intermittent, Less than 6 Hours Per Day (ICD-10-PCS; 2018-04-19)
PROC: 5A1D70Z Performance of Urinary Filtration, Intermittent, Less than 6 Hours Per Day (ICD-10-PCS; 2018-04-21)
PROC: 5A1D70Z Performance of Urinary Filtration, Intermittent, Less than 6 Hours Per Day (ICD-10-PCS; 2018-04-25)
DX: N18.6 End stage renal disease (principal); R53.81 Other malaise; K21.9 Gastro-esophageal reflux disease without esophagitis; R53.1 Weakness; E83.51 Hypocalcemia; D63.1 Anemia in chronic kidney disease; S61.219A Laceration without foreign body of unspecified finger without damage to nail, initial encounter; G89.29 Other chronic pain; M54.9 Dorsalgia, unspecified; E03.9 Hypothyroidism, unspecified; Z79.899 Other long term (current) drug therapy; Z99.2 Dependence on renal dialysis; Z98.84 Bariatric surgery status; W05.0XXA Fall from non-moving wheelchair, initial encounter; Y93.89 Activity, other specified; Y92.89 Other specified places as the place of occurrence of the external cause; Y99.8 Other external cause status